=== PATIENT | female | born 1995 | race Caucasian/White ===

== ENCOUNTER 2018-10-16 05:42 | Emergency (ER) | payer BC ==
[2018-10-16] MEDS ORDERED: diPHENhydraMINE PO* 25 MG PO ONE (06:07)
[2018-10-16] MEDS ORDERED: predniSONE TAB* 20 MG PO ONE (06:07)
--- NOTE | 2018-10-16 06:31 | ED ---
Skin Complaint - HPI Summary HPI Summary: 22 year old female presents with rash today. She states started with tightness on her right thumb. She states noticed a rash on hands onto her arms and into her legs. States rash is very itchy. She denies any new soaps or products. She was not outside. She denies any new medication. States she did have a UTI recently but did not take antibiotics. She denies any fevers or chills. Denies any cough. She has been having shortness breath. No abdominal pain. - History of Current Complaint Chief Complaint: EDAllergicReaction Time Seen by Provider: 10/16/18 06:02 Stated Complaint: ALLERGIC REACTION PER PT Pain Intensity: 0 - Allergy/Home Medications Allergies/Adverse Reactions: Allergies Allergy/AdvReac Type Severity Reaction Status Date / Time amoxicillin [From Augmentin] Allergy Rash Verified 10/16/18 05:47 ciprofloxacin Allergy Rash Verified 10/16/18 05:47 clavulanic acid Allergy Rash Verified 10/16/18 05:47 [From Augmentin] clindamycin Allergy Swelling Verified 10/16/18 05:47 Of Face,Lips,& Throat Penicillins Allergy Rash Verified 10/16/18 05:47 Home Medications: Home Medications Citalopram Hydrobromide [Citalopram HBr] 10 mg PO DAILY 10/16/18 [History Confirmed 10/16/18] [place] 28 Tablet 10/16/18 [History] PMH/Surg Hx/FS Hx/Imm Hx Endocrine/Hematology History: Denies: Hx Anticoagulant Therapy Respiratory History: Denies: Hx Asthma, Hx Chronic Obstructive Pulmonary Disease (COPD) Infectious Disease History: No Infectious Disease History: Denies: Traveled Outside the [place] in Last 30 Days - Family History Known Family History: Positive: Non-Contributory - Social History Alcohol Use: Occasionally Substance Use Type: Reports: None Smoking Status (MU): Never Smoked Tobacco Review of Systems Negative: Fever Negative: Chest Pain Negative: Shortness Of Breath Positive: Rash All Other Systems Reviewed And Are Negative: Yes Physical Exam Triage Information Reviewed: Yes Vital Signs On Initial Exam: Initial Vitals Temp Pulse Resp BP Pulse Ox 98.4 F 71 15 146/100 96 10/16/18 05:44 10/16/18 05:44 10/16/18 05:44 10/16/18 05:44 10/16/18 05:44 Vital Signs Reviewed: Yes Appearance: Positive: Well-Appearing Skin: Positive: Warm, Dry, Other - urticaria across legs and arms Head/Face: Positive: Normal Head/Face Inspection Eyes: Positive: Normal, EOMI, RAVI, Conjunctiva Clear ENT: Positive: Normal ENT inspection, Pharynx normal, TMs normal Respiratory/Lung Sounds: Positive: Clear to Auscultation, Breath Sounds Present Cardiovascular: Positive: Normal, RRR Abdomen Description: Positive: Nontender, Soft Bowel Sounds: Positive: Present Musculoskeletal: Positive: Normal Neurological: Positive: Normal Psychiatric: Positive: Normal Diagnostics - Vital Signs Vital Signs Temp Pulse Resp BP Pulse Ox 10/16/18 05:44 98.4 F 71 15 146/100 96 - Laboratory Result Diagrams: 10/16/18 07:22 10/16/18 07:24 Lab Statement: Any lab studies that have been ordered have been reviewed, and results considered in the medical decision making process. Re-Evaluation - Re-Evaluation First Eval Change: Improved Comment: rash is less Course/Dx - Course Course Of Treatment: 22 year old female presents with rash today. She states started with tightness on her right thumb. She states noticed a rash on hands onto her arms and into her legs. States rash is very itchy. She denies any new soaps or products. She was not outside. She denies any new medication. States she did have a UTI recently but did not take antibiotics. She denies any fevers or chills. Denies any cough. She has been having shortness breath. No abdominal pain. On exam has rash across arms and legs. Has some swelling noted to the hands. Lungs to auscultation. Gave prednisone and Benadryl no improvement. Lab work shows no acute abnormality. will wait for culture for urine. patient understand and agrees with plan. - Differential Diagnoses - Skin Complaint Differential Diagnoses: Allergic Reaction, Contact Dermatitis, Systemic Illness - Diagnoses Provider Diagnoses: Rash Discharge - Sign-Out/Discharge Documenting (check all that apply): Patient Departure Patient Received Moderate/Deep Sedation with Procedure: No - Discharge Plan Condition: Good Disposition: HOME Prescriptions: predniSONE TAB* [Deltasone TAB*] 50 mg PO DAILY #4 tab Patient Education Materials: Acute Rash (ED) Referrals: Eliezer Hester MD [Primary Care Provider] - Additional Instructions: Take Benadryl every 6 hours Take steroid once a day for 4 days starting tomorrow Return to ED if shortness of breath, chest pain, or if develop any new or worsening symptoms - Billing Disposition and Condition Condition: GOOD Disposition: Home
[2018-10-16 07:34] LABS: ABS Eosinophils 0.1 10^3/ul (0-0.6); ABS Lymphocytes 1.3 10^3/ul (1.0-4.8); ABS Monocytes 0.4 10^3/ul (0-0.8); ABS Neutrophils 7.7 10^3/ul (1.5-7.7); Eosinophil % 0.6 %; Hematocrit 41 % (35-47); Hemoglobin 14.4 g/dL (12.0-16.0); Lymphocyte % 14.1 %; Mean Corpuscular HGB Conc 35 g/dL (31-36); Mean Corpuscular Hemoglobin 32 pg (27-31); Mean Corpuscular Volume 92 fL (80-97); Mean Platelet Volume 8.2 fL (7.4-10.4); Nucleated Red Blood Cells % 0.1; Platelet Count 219 10^3/uL (150-450); Red Blood Count 4.52 10^6 /uL (3.70-4.87); Red Cell Distribution Width 13 % (10-15); White Blood Count 9.6 10^3/uL (3.5-10.8)
[2018-10-16 07:54] LABS: Albumin 4.4 g/dL (3.2-5.2); Albumin/Globulin Ratio 1.6 (1-3); BUN/Creatinine Ratio 17.1 (8-20); C Reactive Protein 7.87 mg/L (<8.01); Calcium 9.5 mg/dL (8.6-10.3); EGFR African American 114.1 (>60); EGFR Non-African American 94.3 (>60); Globulin 2.8 g/dL (2-4); Potassium 3.9 mmol/L (3.5-5.0); Total Bilirubin 0.3 mg/dL (0.2-1.0); Total Protein 7.2 g/dL (6.4-8.9)
[2018-10-16 08:01] LABS: Urine Appearance Clear; Urine Bacteria 1+ (Absent); Urine Bilirubin Negative (Negative); Urine Blood Negative (Negative); Urine Color Yellow; Urine Glucose Negative (Negative); Urine Ketones Negative (Negative); Urine Nitrite Negative (Negative); Urine Protein Negative (Negative); Urine Red Blood Cell Absent (Absent); Urine Specific Gravity 1.009 (1.010-1.030); Urine Squamous Epithelial Cell Present (Absent); Urine Urobilinogen Negative (Negative); Urine White Blood Cell Trace(0-5/hpf) (Absent)
[2018-10-16 08:21] VITALS: BP 132/78
== END 2018-10-16 08:18 | disposition home or self-care (01) ==
LOC: ED 05:42
DX: R21 Rash and other nonspecific skin eruption (principal); Z88.1 Allergy status to other antibiotic agents; Z88.0 Allergy status to penicillin; Z79.899 Other long term (current) drug therapy
CPT/HCPCS: 36415; 80053; 81003; 81015; 85025; 86140; 87086; 99283; A9270-GY; J7512